=== PATIENT | female | born 1985 | race African-American/Black ===

== ENCOUNTER 2020-08-02 13:27 | Inpatient (IN) ==
[2020-08-02] MEDS ORDERED: cefTRIAXone 1,000 MG in SODIUM CHLORIDE 0.9% 100 ML IV STA (13:36)
[2020-08-02] MEDS ORDERED: SODIUM CHLORIDE 0.9% 1,000 ML IV STA (13:41)
[2020-08-02] MEDS ORDERED: HYDROmorphone 2 MG/1 ML VIAL IV STA (13:41)
[2020-08-02] MEDS ORDERED: ONDANSETRON 4 MG/2 ML VIAL IV STA (13:41)
[2020-08-02 14:29] LABS: Basophils # 0.1 10*3/uL (0.0-0.2); Basophils % 0.5 % (0.0-0.8); Eosinophils % 0.2 % (0.00-10.9); Hematocrit 36.7 VOL% (35.7-47.0); Hemoglobin 11.6 GM/DL (12.0-16.0); Immature Granulocytes % 0.9 %; Immature Granulocytes Absolute 0.11 #; Lymphocytes # 1.6 10*3/uL (1.4-4.0); Lymphocytes % 13.7 % (21.3-54.2); Mean Corpuscular HGB Conc 31.6 GM/DL (32-36); Mean Corpuscular Volume 78.6 FL (87-102); Mean Platelet Volume 10.5 FL (9.6-12.0); Monocytes % 9.1 % (1.7-12.7); Neutrophils % 75.6 % (38.7-73.9); Platelet Count 152 T/CUMM (130-400); Red Blood Count 4.67 MC/CUMM (3.8-5.5); Red Cell Distribution Width 14.1 % (9.3-17.3); White Blood Count 11.6 T/CUMM (4-12)
[2020-08-02 14:54] LABS: Lymphocytes 15 % (20-55); Segmented Neutrophils 80 % (50-85); Total Cells Counted 100
[2020-08-02 14:55] LABS: Albumin 2.7 G/DL (3.4-5.0); Bilirubin,Total 1.8 MG/DL (0.2-1.0); Calcium 8.5 MG/DL (8.5-10.1); Osmolality,Calculated 271.8 MOS/KG (273-304); Potassium 3.3 MMOL/L (3.5-5.1); Total Protein 7.7 G/DL (6.4-8.2)
[2020-08-02] MEDS ORDERED: DOCUSATE SODIUM 100 MG CAPSULE PO PRN (15:06)
[2020-08-02] MEDS ORDERED: DEXTROSE 50% 25 GM/50 ML VIAL IV PRN (15:06)
[2020-08-02] MEDS ORDERED: LACTULOSE 20 GM/30 ML UDCUP PO PRN (15:06)
[2020-08-02] MEDS ORDERED: GLUCAGON 1 MG VIAL IM PRN (15:06)
[2020-08-02 16:07] LABS: Bacteria,Urine Many /HPF (Few); Bilirubin,Urine Negative (Negative); Blood, Urine Small mg/dL (Negative); Glucose,Urine (UA) Negative (Negative); Ketones,Urine Negative (Negative); Mucus,Urine Occasional /LPF (Occasional); Nitrite,Urine Positive (Negative); Protein,Urine 100 MG/DL; RBC,Urine 16 /HPF (0-4); Squamous Epithelial Cell,Urine Occasional /HPF (0-10); Urine Appearance Slightly Hazy (Clear); Urine Color Amber (Yellow); Urine Specific Gravity 1.016 (1.001-1.035)
[2020-08-02 17:06] LABS: Albumin 2.8 G/DL (3.4-5.0); Bilirubin,Direct 0.87 MG/DL (0.0-0.20); Bilirubin,Indirect 0.8 MG/DL (0.0-1.0); Bilirubin,Total 1.7 MG/DL (0.2-1.0); Total Protein 7.7 G/DL (6.4-8.2)
[2020-08-02] MEDS: SODIUM CHLORIDE 0.45% 1,000 ML IV SCH (17:19)
[2020-08-02] MEDS: HYDROmorphone 2 MG/1 ML VIAL IV PRN ×2 (18:22→22:23)
[2020-08-02] MEDS: POTASSIUM CHLORIDE 20 MEQ TABLET PO PRN ×3 (18:25→20:23)
[2020-08-02] MEDS: ONDANSETRON 4 MG/2 ML VIAL IV PRN (22:03)
[2020-08-03] MEDS: SODIUM CHLORIDE 0.45% 1,000 ML IV SCH ×2 (01:20→11:07)
[2020-08-03 02:53] LABS: Basophils # 0.1 10*3/uL (0.0-0.2); Basophils % 0.5 % (0.0-0.8); Eosinophils # 0.1 10*3/uL (0.0-0.87); Eosinophils % 0.4 % (0.00-10.9); Hematocrit 33.6 VOL% (35.7-47.0); Hemoglobin 10.7 GM/DL (12.0-16.0); Immature Granulocytes % 1.2 %; Immature Granulocytes Absolute 0.13 #; Lymphocytes % 18.2 % (21.3-54.2); Mean Corpuscular HGB Conc 31.8 GM/DL (32-36); Mean Corpuscular Volume 79.1 FL (87-102); Mean Platelet Volume 9.8 FL (9.6-12.0); Monocytes % 8.8 % (1.7-12.7); Neutrophils % 70.9 % (38.7-73.9); Platelet Count 165 T/CUMM (130-400); Red Blood Count 4.25 MC/CUMM (3.8-5.5); Red Cell Distribution Width 14.1 % (9.3-17.3); White Blood Count 11.2 T/CUMM (4-12)
[2020-08-03 03:09] LABS: Calcium 7.9 MG/DL (8.5-10.1); Osmolality,Calculated 272.8 MOS/KG (273-304); Potassium 3.5 MMOL/L (3.5-5.1)
[2020-08-03 03:51] LABS: Band Neutrophils 1 % (0-10); Eosinophils 1 % (0-10); Lymphocytes 20 % (20-55); Segmented Neutrophils 69 % (50-85)
[2020-08-03 03:52] LABS: Atypical Lymphocytes Few; Hypochromasia 1+; Platelet Estimate Normal; Reactive Lymphocytes 2+
[2020-08-03 03:53] LABS: Polychromasia Few; Total Cells Counted 100
[2020-08-03] MEDS: POTASSIUM CHLORIDE 20 MEQ TABLET PO PRN ×3 (05:20→11:49)
[2020-08-03] MEDS: ONDANSETRON 4 MG/2 ML VIAL IV PRN ×2 (07:46→14:21)
[2020-08-03] MEDS ORDERED: LEVOFLOXACIN INJ 750 MG/150 ML PREMIX IV SCH (08:00)
[2020-08-03] MEDS ORDERED: PANTOPRAZOLE 40 MG TABLET PO SCH (09:00)
[2020-08-03] MEDS: HYDROmorphone 2 MG/1 ML VIAL IV PRN ×2 (09:07→14:22)
[2020-08-03 11:26] VITALS: BP 105/68
[2020-08-03] MEDS ORDERED: cefTRIAXone 2,000 MG in SODIUM CHLORIDE 0.9% 100 ML IV SCH (12:00)
== END 2020-08-03 16:45 | disposition home or self-care (01) | DRG 690 ==
LOC: N.ED 13:27 → N.EDINP 15:05 → N.4E 16:56
PROVIDERS: ADMIT Internal Medicine; ATTEND Internal Medicine